=== PATIENT | female | born 1975 | race Caucasian/White ===

== ENCOUNTER 2016-08-08 23:47 | Emergency (ER) | payer OTHER ==
[~2016-08-08] VITALS: Ht 160 cm; Wt 53.1 kg
[~2016-08-08 23:47] MED LIST: FERROUS SULFAT325 M1 PO; HALFPRIN81 MG PO; HUMALOG MI100 UNIT/1 SUBCUT; HYDROCODON-ACE1 EAC6 PO; LAMICTAL100 MG PO; LANTUS100 UNIT/1 SUBCUT; LIPITOR40 MG PO; NEXIUM40 MG PO; PHENERGAN25 M1 PEGTUBE; TRAZODONE HCL100 MG PO
== END 2016-08-09 01:52 | disposition short-term general hospital (02) ==
LOC: ER 23:47
DX: E16.2 Hypoglycemia, unspecified (principal); F10.129 Alcohol abuse with intoxication, unspecified; F31.9 Bipolar disorder, unspecified; Z90.89 Acquired absence of other organs; Z98.890 Other specified postprocedural states; Z79.4 Long term (current) use of insulin; Z79.899 Other long term (current) drug therapy; Y90.8 Blood alcohol level of 240 mg/100 ml or more
CPT/HCPCS: G0480